=== PATIENT | male | born 1970 | race Hispanic/Latino ===

== ENCOUNTER 2017-04-04 11:40 | Emergency (ER) | payer OTHER ==
[~2017-04-04] VITALS: Ht 175.3 cm; Wt 95.5 kg
[2017-04-04 12:12] LABS: BASO % 0.5 % (0.0-1.0); EOS # 0.1 10^3/uL (0.0-0.50); LYMPH # 1.2 10^3/uL (1.5-4.5); LYMPH % 32.3 % (24.0-44.0); MEAN CORPUSCULAR HEMOGLOBIN 29.1 pg (27.0-33.0); MEAN CORPUSCULAR HGB CONC 34.2 g/dl (32.0-36.5); MEAN CORPUSCULAR VOLUME 85.2 fl (80.0-96.0); MONO # 0.5 10^3/uL (0.0-0.8); MONO % 14.2 % (0.0-5.0); NEUTROPHILS # 1.8 10^3/uL (1.8-7.7); PLATELET COUNT, AUTOMATED 194 10^3/uL (150-450); RED CELL DISTRIBUTION WIDTH 12.8 % (11.5-14.5); WHITE BLOOD COUNT 3.7 10^3/uL (4.0-10.0)
[2017-04-04] MEDS ORDERED: ASPIRIN 81 MG CHEW TABLET PO ONE (12:15)
[2017-04-04 12:27] LABS: ALBUMIN 3.8 GM/DL (3.2-5.2); ALBUMIN/GLOBULIN RATIO 1.23 (1.00-1.93); ALKALINE PHOSPHATASE 40 U/L (45-117); ALT/SGPT 85 U/L (12-78); ANION GAP 6 MEQ/L (8-16); AST/SGOT 51 U/L (7-37); BILIRUBIN,DIRECT 0.2 MG/DL (0.0-0.2); BILIRUBIN,TOTAL 0.9 MG/DL (0.2-1.0); BLOOD UREA NITROGEN 20 MG/DL (7-18); CALCIUM LEVEL 8.4 MG/DL (8.5-10.1); CARBON DIOXIDE LEVEL 29 MEQ/L (21-32); CHLORIDE LEVEL 108 MEQ/L (98-107); CREATININE FOR GFR 1.09 MG/DL (0.70-1.30); FREE T4 0.87 NG/DL (0.76-1.46); GLOMERULAR FILTRATION RATE > 60.0 (>60); GLUCOSE, FASTING 96 MG/DL (70-105); POTASSIUM SERUM 4.3 MEQ/L (3.5-5.1); SODIUM LEVEL 143 MEQ/L (136-145); TOTAL PROTEIN 6.9 GM/DL (6.4-8.2)
--- NOTE | 2017-04-04 12:33 | REP ---
Portable chest: Single view. History: Chest pain. Comparison study: April 11, 2012. Findings: EKG monitoring electrodes overlie the chest. Lungs are well inflated and clear. Pleural angles are sharp. Heart size is normal. Pulmonary vasculature is not increased. No bony abnormalities seen per Impression: No active disease. Signed by uLc Odom MD 04/04/2017 12:24 P
[2017-04-04] MEDS ORDERED: NS 1,000 ML IV ONE (12:45)
[2017-04-04] MEDS ORDERED: ISOVUE-370 76% 100ML VIAL (Q9967) As Ordered ONE (13:10)
--- NOTE | 2017-04-04 13:51 | REP ---
CT study of the brain without contrast: History: Headache. Findings: Digital lateral forging machine hand radiograph is unremarkable. Bone window settings show no evidence of skull fracture or bony destructive lesion. Visualized paranasal sinuses are clear. On soft tissue window settings, lateral, third and fourth ventricles are normal in size and position. Easton-white differentiation pattern is normal above and below the tentorium. There is no evidence of intracranial hemorrhage. No extra-axial fluid collection is seen. No mass, infarction, or midline shift is seen. Impression: Negative noncontrast head CT. Signed by Luc Odom MD 04/04/2017 01:42 P
--- NOTE | 2017-04-04 14:56 | REP ---
CT pulmonary angiogram: With IV contrast. History: Chest pain Comparison studies: No comparison CT studies. Contrast dose: 75 cc's of Isovue [address] technique: Helical scanning is acquired and overlapping 1.5 mm and contiguous 3 mm axial images are reformatted. In addition, a 3-D work station is deployed to generate thick slab maximum intensity projection images in sagittal and coronal imaging projections. CT pulmonary angiographic findings: There is good opacification of the pulmonary arterial tree. There is no CT evidence of pulmonary embolism. The thoracic aorta enhances homogeneously and is normal in course and caliber. No pleural or pericardial effusion is seen. A very small sliding-type hiatal hernia is noted. No adrenal lesion is seen. Visualized upper abdominal structures are unremarkable. No hilar or mediastinal mass or adenopathy is observed. Lung window settings show no infiltrate, pulmonary mass or nodule. Maximum intensity projection images show no vessel cutoff or filling defect in the pulmonary arterial tree. No bony destructive lesion seen. Impression: Negative CT pulmonary angiogram. No CT evidence of pulmonary embolus. No active disease. Tiny hiatal hernia. Signed by Luc Odom MD 04/04/2017 04:52 P
[2017-04-04 16:15] VITALS: BP 123/70
--- NOTE | 2017-04-04 18:40 | ECGEPIP ---
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
--- NOTE | 2017-04-04 19:15 | ECGEPIP ---
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
== END 2017-04-04 16:16 | disposition home or self-care (01) ==
LOC: M ED 11:40
DX: F41.9 Anxiety disorder, unspecified (principal); I10 Essential (primary) hypertension
CPT/HCPCS: 36415; 70450; 71010; 71275; 80048; 80076; 82550; 82553; 83690; 84439; 84443; 85025; 86705; 86709; 86803; 87340; 93005; 93041; 94760; 99285; Q9967

== ENCOUNTER 2017-11-25 20:09 | Emergency (ER) | payer OTHER ==
[2017-11-25] MEDS: dexameTHASONE 20 MG/5 ML VIAL (J1100) IV (21:07)
[2017-11-25] MEDS: diphenhydrAMINE INJ 50MG/ML VIAL (J1200) IV (21:07)
== END 2017-11-25 21:30 | disposition home or self-care (01) ==
LOC: M ED 20:09
DX: K12.2 Cellulitis and abscess of mouth (principal); T39.315A Adverse effect of propionic acid derivatives, initial encounter; I10 Essential (primary) hypertension; Z88.8 Allergy status to other drugs, medicaments and biological substances; Z91.02 Food additives allergy status; Z79.899 Other long term (current) drug therapy
CPT/HCPCS: J1100

== ENCOUNTER → 2018-10-28 | Outpatient (REF) | payer OTHER ==
[~2018-10-28] MED LIST: BENA25TA10 PO; LOSA25TA14 PO
[2018-10-28 13:01] LABS: ALBUMIN 3.9 GM/DL (3.2-5.2); ALT/SGPT 45 U/L (12-78); BILIRUBIN,TOTAL 1.3 MG/DL (0.2-1.0); BLOOD UREA NITROGEN 21 MG/DL (7-18); CALCIUM LEVEL 8.6 MG/DL (8.5-10.1); CARBON DIOXIDE LEVEL 28 MEQ/L (21-32); CHLORIDE LEVEL 106 MEQ/L (98-107); CHOLESTEROL LEVEL 180 MG/DL (<200); CREATININE FOR GFR 1.08 MG/DL (0.70-1.30); GLOMERULAR FILTRATION RATE > 60.0 (>60); GLUCOSE, FASTING 95 MG/DL (70-100); HDL CHOLESTEROL 40 MG/DL (>40); LDL CHOLESTEROL 112 MG/DL (<100); NON-HDL-C 140 MG/DL; POTASSIUM SERUM 4.8 MEQ/L (3.5-5.1); SODIUM LEVEL 139 MEQ/L (136-145); TOTAL PROTEIN 7.1 GM/DL (6.4-8.2); TRIGLYCERIDES LEVEL 141 MG/DL (<150)
[2018-10-28 13:17] LABS: HEMOGLOBIN A1c 5.2 %
== END ==
LOC: M SFHCPLAZ 08:36
PROVIDERS: ATTEND Family Medicine
DX: Z13.1 Encounter for screening for diabetes mellitus (principal); I10 Essential (primary) hypertension; Z13.220 Encounter for screening for lipoid disorders

== ENCOUNTER → 2019-05-10 | Outpatient (CLI) | payer OTHER ==
--- NOTE | 2019-05-10 13:28 | REP ---
SCROTAL ULTRASOUND: Real-time sonographic evaluation of the scrotum and contents performed. Testicles are normal in size and echotexture, right testicle measuring 3.5 x 1.4 x 2.1 cm and left testicle 3.7 x 1.5 x 1.6 cm. There is no evidence of testicular mass or torsion. Cyst in the head of the left epididymis measures 3 mm. There is no evidence of testicular torsion with blood flow seen in each testicle with duplex Doppler evaluation. There are small bilateral hydroceles. IMPRESSION: No testicular mass or torsion. There is a 3 mm cyst in the head of the left epididymis. Small bilateral hydroceles. Electronically Signed by Christiano Easton MD 05/10/2019 04:57 P
== END ==
LOC: M RAD 11:57
PROVIDERS: ATTEND Family Medicine
DX: N43.3 Hydrocele, unspecified (principal); N50.3 Cyst of epididymis; N50.89 Other specified disorders of the male genital organs

== ENCOUNTER → 2019-05-20 | Outpatient (REF) | payer OTHER | LOC: M SFHCPLAZ 08:46 | PROVIDERS: ATTEND Physician Assistant | DX: Z53.9 Procedure and treatment not carried out, unspecified reason (principal) ==

== ENCOUNTER → 2019-08-23 | Outpatient (REF) | payer OTHER | LOC: M LAB REF 20:56 | PROVIDERS: ATTEND Physician Assistant | DX: R51 Headache (principal) | CPT/HCPCS: 87486; 87581; 87633; 87798; U0002 ==